=== PATIENT | female | born 1970 | race African-American/Black ===

== ENCOUNTER 2020-11-15 23:08 | Emergency (ER) | payer SELFPAY ==
[~2020-11-15] VITALS: Ht 170.2 cm; Wt 132.6 kg
[2020-11-15 23:08] VITALS: BP 137/80
[~2020-11-15 23:08] MED LIST: ALBU2.5V8 IH; AZIT250T PO; AZIT500T PO; BENZ100C PO; CEFP200T PO; GUAI600T47 PO; HYDR-3165 PO; HYDR115S2 PO; IPRA3AMP29 IH; PRED50TA PO; ZOLP10TA PO
--- NOTE | 2020-11-15 23:26 | PHYS DOC ---
Past History Past Medical History: Asthma, Other Past Surgical History: No Surgical History, Other Smoking: Cigarettes Alcohol Use: Occasionally Drug Use: None General Adult HPI: HPI: ".. I got a wicked sore throat..."... my tonsils are swollen.... My ears hurt.... For the last 2 days... fever.. congestion.. just lamonte hurt..all over my head.. " Patient is a 50 year old FEMALE who presents with above hx and complaints sore throat, congestion, ear pain x 2 days. Patient states pain feels like previous strep infections. Patient did not get flu vaccination this year. Symptoms been present last 2 days. Tonight her ears started hurting. Bilateral ears have fluid and injection. Patient denies any history mental suppression. Has not follow-up with primary care recently. No immunosuppression. No recent travel. No severe ill contacts. Patient does have a history of hypertension and morbid obesity. Review of Systems: Review of Systems: Constitutional: Subjective complaints of fever and chills Eyes: Denies change in visual acuity HENT: History of nasal congestion and sore throat. Complains of bilateral ear pain Respiratory: History of cough and wheezing Cardiovascular: Denies chest pain or edema GI: Denies abdominal pain, nausea, vomiting, bloody stools or diarrhea : Denies dysuria Musculoskeletal: Denies back pain or joint pain Integument: Denies rash Neurologic: Denies headache, focal weakness or sensory changes Endocrine: Denies polyuria or polydipsia Lymphatic: Denies swollen glands Psychiatric: Denies depression or anxiety Family History: Family History: Noncontributory Current Medications: Current Meds: See nursing for home meds Allergies: Allergies: Allergies Coded Allergies Type Severity Reaction Last Updated Verified No Known Drug Allergies 09/22/14 No Physical Exam: PE: Constitutional: Moderate acute distress, non-toxic appearance. [] HENT: Normocephalic, atraumatic, bilateral external ears normal, bilateral TMs are injected with fluid, oropharynx moist, injected pharynx, very large tonsillar pillars and adenoids, no oral exudates, nose swollen turbinates with clear rhinorrhea Eyes: PERRLA, EOMI, conjunctiva normal, no discharge. [] Neck: Normal range of motion, no tenderness, supple, no stridor. [] Neck size more than 17 inches circumference. Anterior cervical chain adenopathy Cardiovascular:Tachycaridia Heart rate regular rhythm, no murmur []PMI to Lt. Lungs & Thorax: Bilateral breath sounds equal at apexes on auscultation []Basilar crackles. Abdomen: Bowel sounds normal, soft, no tenderness, no masses, no pulsatile masses. Morbid obesity Skin: Warm, dry, no erythema, no rash. [] Back: No tenderness, no CVA tenderness. [] Extremities: No tenderness, no cyanosis, no clubbing, ROM intact, bilateral ankle edema. [] Neurologic: Alert and oriented X 3, normal motor function, normal sensory function, no focal deficits noted. [] Psychologic: Affect anxious, judgement normal, mood normal. [] EKG: EKG: [] Radiology/Procedures: Radiology/Procedures: [] Heart Score: Risk Factors: Risk Factors: DM, Current or recent (<one month) smoker, HTN, HLP, family history of CAD, obesity. Risk Scores: Score 0 - 3: 2.5% MACE over next 6 weeks - Discharge Home Score 4 - 6: 20.3% MACE over next 6 weeks - Admit for Clinical Observation Score 7 - 10: 72.7% MACE over next 6 weeks - Early Invasive Strategies Course & Med Decision Making: Course & Med Decision Making Pertinent Labs and Imaging studies reviewed. (See chart for details) Patient gargle Listerine 4 times a day. Patient take Tylenol and ibuprofen as needed for pain. Patient take Keflex 500 mg 3 times a day. Patient return if any concerns. Follow-up primary care. Impression: 1. Viral pharyngitis 2. Bilateral otitis 3. Morbid obesity. [] Dragon Disclaimer: Dragon Disclaimer: This electronic medical record was generated, in whole or in part, using a voice recognition dictation system. Departure Departure: Referrals: PCP,NO (PCP) Scripts Fluconazole (DIFLUCAN) 100 Mg Tablet 100 MG PO DAILY for post antibiotic for 3 Days, #3 TAB Prov: DARIUSZ BAER MD 11/16/20 Cephalexin (KEFLEX) 750 Mg Capsule 1 CAP PO TID for pharyngitis for 10 Days, #30 CAP 0 Refills Prov: DARIUSZ BAER MD 11/16/20 Henry Disclaimer This chart was dictated in whole or in part using Voice Recognition software in a busy, high-work load, and often noisy Emergency Department environment. It may contain unintended and wholly unrecognized errors or omissions. Dragon Disclaimer This chart was dictated in whole or in part using Voice Recognition software in a busy, high-work load, and often noisy Emergency Department environment. It may contain unintended and wholly unrecognized errors or omissions. DARIUSZ BAER MD Nov 15, 2020 23:26
[2020-11-16] MEDS ORDERED: FLUC100T7 PO
[2020-11-16] MEDS ORDERED: oxyCODONE/APAP 5/325 1 TAB TABLET PO ONE
[2020-11-16] MEDS ORDERED: CEPH750C9 PO
[2020-11-16] MEDS ORDERED: predniSONE 10 MG TABLET PO ONE
[2020-11-16] MEDS ORDERED: KETOROLAC 60 MG/2 ML VIAL. IM ONE (00:30)
[2020-11-16] MEDS ORDERED: cefTRIAXone IM 1 GM VIAL IM ONE (00:30)
[2020-11-16 00:52] LABS: INFLUENZA A PATIENT NEGATIVE (NEGATIVE); INFLUENZA B PATIENT NEGATIVE (NEGATIVE)
== END 2020-11-16 01:45 | disposition home or self-care (01) ==
LOC: ER 23:08
DX: J02.8 Acute pharyngitis due to other specified organisms (principal); H66.93 Otitis media, unspecified, bilateral; E66.01 Morbid (severe) obesity due to excess calories; J45.909 Unspecified asthma, uncomplicated; F17.210 Nicotine dependence, cigarettes, uncomplicated; Z68.42 Body mass index [BMI] 45.0-49.9, adult
CPT/HCPCS: 87070; 87804; 87880; 96372; 99284; J0696; J1885; J7512

== ENCOUNTER 2021-07-19 10:11 | Emergency (ER) | payer SELFPAY ==
[~2021-07-19] VITALS: Ht 170.2 cm; Wt 135.0 kg
[~2021-07-19 10:11] MED LIST changes: +CEPH750C9 PO; +FLUC100T7 PO
[2021-07-19] MEDS ORDERED: IPRATRPIUM/ALBUTEROL 0.5/2.5MG 3 ML NEBU. ONE (11:12)
--- NOTE | 2021-07-19 11:27 | PHYS DOC ---
Past History Past Medical History: Asthma Past Surgical History: No Surgical History, Tubal ligation Smoking: Cigarettes Alcohol Use: None Drug Use: None General Adult EDM: Chief Complaint: SHORTNESS OF BREATH HPI: HPI: Patient is a 51-year-old female who presents to the ER for an asthma exacerbation. Patient is reporting shortness of breath with a clear productive cough that started today. Patient has a rescue inhaler that she uses but does not have Symbicort or DuoNeb's at home. Patient denies fevers or sick exposures. Review of Systems: Review of Systems: 14 body systems of the review of systems have been reviewed. See HPI for pertinent positive and negative responses, otherwise all other systems are negative, nonpertinent or noncontributory Current Medications: Current Meds: Current Medications Medications (Trade) Dose Ordered Sig/Tobi Start Time Stop Time Status Last Admin Dose Admin Albuterol/ Ipratropium (Duoneb) 3 ml STK-MED ONCE 07/19/21 11:12 07/19/21 11:13 DC Prednisone (Prednisone) 60 mg 1X ONCE 07/19/21 11:30 07/19/21 11:31 UNV Allergies: Allergies: Allergies Coded Allergies Type Severity Reaction Last Updated Verified No Known Drug Allergies 09/22/14 No Physical Exam: PE: Constitutional: Well developed, well nourished, no acute distress, non-toxic appearance. [] HENT: Normocephalic, atraumatic, bilateral external ears normal, oropharynx moist, no oral exudates, nose normal. [] Eyes: PERRL, EOMI, conjunctiva normal, no discharge. [] Neck: Normal range of motion, no stridor Cardiovascular:Heart rate regular rhythm, no murmur [] Lungs & Thorax: Inspiratory and expiratory wheezing noted throughout Abdomen: Bowel sounds normal, soft, no tenderness, no masses, no pulsatile masses. [] Skin: Warm, dry, no erythema, no rash. [] Back: Normal range of motion Extremities: No tenderness, no cyanosis, no clubbing, ROM intact, no edema. [] Neurologic: Alert and oriented X 3, normal motor function, normal sensory function, no focal deficits noted. [] Psychologic: Affect normal, judgement normal, mood normal. [] Current Patient Data: Labs: Current Medications Medications (Trade) Dose Ordered Sig/Tobi Route PRN Reason Start Time Stop Time Status Last Admin Dose Admin Albuterol/ Ipratropium (Duoneb) 3 ml STK-MED ONCE .ROUTE 07/19/21 11:12 07/19/21 11:13 DC Prednisone (Prednisone) 60 mg 1X ONCE PO 07/19/21 12:00 07/19/21 11:39 DC Methylprednisolone Sodium Succinate (SOLU-Medrol 125MG VIAL) 125 mg 1X ONCE IV 07/19/21 12:15 07/19/21 12:16 DC 07/19/21 12:15 Albuterol Sulfate (Ventolin) 2.5 mg STK-MED ONCE .ROUTE 07/19/21 12:51 07/19/21 12:51 DC Albuterol Sulfate (Ventolin) 10 mg 1X ONCE NEB 07/19/21 13:15 07/19/21 13:16 DC 07/19/21 13:11 Albuterol/ Ipratropium (Duoneb) 3 ml 1X ONCE NEB 07/19/21 13:15 07/19/21 13:16 DC 07/19/21 13:11 EKG: EKG: [] Radiology/Procedures: Radiology/Procedures: PROCEDURE: PORTABLE CHEST 1V Single view of the chest. 07/19/2021 11:25 AM Indication: Reason: SHORTNESS OF BREATH, WHEEZING, HX ASTHMA / Comparison: Chest radiograph November 16, 2014 Findings: No gross hyperinflation is identified. No pneumothorax or pleural effusion is seen. No focal infiltrates are identified. Mild interstitial coarsening is seen, nonspecific but similar to comparison study. Heart size is normal. Bony thorax is grossly intact. IMPRESSION: Mild interstitial coarsening, similar to comparison exams, likely chronic. No acute cardiopulmonary process is identified.. Electronically signed by: Yaw Bauman MD (07/19/2021 11:51 AM) [id number] DICTATED AND SIGNED BY: YAW BAUMAN MD DATE: 07/19/21 1150 CC: ED DAVIS APRN; PCP,NO ~MTH0 0 [] Heart Score: C/O Chest Pain: No Risk Factors: Risk Factors: DM, Current or recent (<one month) smoker, HTN, HLP, family history of CAD, obesity. Risk Scores: Score 0 - 3: 2.5% MACE over next 6 weeks - Discharge Home Score 4 - 6: 20.3% MACE over next 6 weeks - Admit for Clinical Observation Score 7 - 10: 72.7% MACE over next 6 weeks - Early Invasive Strategies Course & Med Decision Making: Course & Med Decision Making Pertinent Labs and Imaging studies reviewed. (See chart for details) [] Patient is a 51-year-old female who presents to the ER with shortness of breath and a clear productive cough. She has a history of asthma. Chest x-ray performed in the ER and it showed chronic interstitial coarsening, similar to previous exam with no acute findings.. Patient tested for COVID-19 and she will be notified of those results when they become available in approximately 2 days. Patient advised to self isolate until she receives those results. Patient treated with [id number] breathing treatments, continuous nebulizer, steroid. Upon reassessment, patient's oxygen saturation is 100%. She is nonlabored. She states that she feels much better and would like to be discharged home with a work note and a steroid. I discussed possible admission for asthma exacerbation with patient and she declined stating as long as she has a steroid to go home when she will be fine. Patient will be discharged home with steroid. Patient advised to follow-up with primary care provider tomorrow regarding her ER visit. I discussed with patient all findings and diagnostic testing as well as the need to follow-up with PCP for further evaluation and treatment or return to the ER if any new or worsening symptoms. Strict return precautions were also discussed at length. Patient voiced understanding and agreement with the plan. Patient is hemodynamically stable at the time of disposition. Henry Disclaimer: Henry Disclaimer: This electronic medical record was generated, in whole or in part, using a voice recognition dictation system. Departure Departure: Impression: Primary Impression: Asthma exacerbation Qualified Codes: J45.901 - Unspecified asthma with (acute) exacerbation Disposition: HOME / SELF CARE / HOMELESS Condition: GOOD Referrals: PCP,NO (PCP) Patient Instructions: Asthma Attacks, Prevention, Asthma Prevention-Brief Additional Instructions: You were seen in the ER today for an asthma exacerbation. You were noted to have wheezing. You were tested for COVID-19. You will be notified of results when they become available in approximately 2 days. Please self isolate until you receive these results. In the ER you had a chest x-ray that showed no acute findings. You were treated with breathing treatments and a steroid. You will be discharged home with a steroid. Please take this as directed. Continue using your inhaler as directed. Please follow-up with your primary care provider tomorrow regarding your ER visit. If you develop worsening of your shortness of breath, chest pain, high fevers refractory to treatment, l ightheadedness or any new or worsening concerns please return to the ER. EMERGENCY DEPARTMENT GENERAL DISCHARGE INSTRUCTIONS Thank you for coming to [facility] (ED) today and trusting us with you care. We trust that you had a positivie experience in our Emergency Department. If you wish to speak to the department management, you may call the director at . YOUR FOLLOW UP INSTRUCTIONS ARE FOLLOWS: 1. Do you have a private Doctor? If you do not have a private doctor, please ask for a resource list of physicians or clinics that may be able to assist you with follow up care. 2. The Emergency Physician has interpreted your x-rays. The X-Ray specialist will also review them. If there is a change in the findings, you will be notified in 48 hours when at all possible. 3. A lab test or culture has been done, your results will be reviewed and you will be notified if you need a change in treatment. ADDITIONAL INSTRUCTIONS AND INFORMATION: 1. Your care today has been supervised by a physician who is specially trained in emergency care. Many problems require more than one evaluation for a complete diagnosis and treatment. We recommend that you schedule your follow up appointment as recommended to ensure complete treatment of you illness or injury. If you are unable to obtain follow up care and continue to have a problem, or if your condition worsens, we recommend that you return to the ED. 2. We are not able to safely determine your condition over the phone nor are we able to give sound medical advice over the phone. For these safety reasons, if you call for medical advice we will ask you to come to the ED for further evaluation. 3. If you have any questions regarding these discharge instructions please call the ED at [phone]. SAFETY INFORMATION: In the interest of safety, wellness, and injury prevention; we encourage you to wear your sealbelt, if you smoke; quite smoking, and we encourage family to use a protective helmet for bicycling and other sporting events that present an increased risk for head injury. IF YOUR SYMPTOMS WORSEN OR NEW SYMPTOMS DEVELOP, OR YOU HAVE CONCERNS ABOUT YOUR CONDITION; OR IF YOUR CONDITION WORSENS WHILE YOU ARE WAITING FOR YOUR FOLLOW UP APPOINTMENT; EITHER CONTACT YOUR PRIMARY CARE DOCTOR, THE PHYSICIAN WHOSE NAME AND NUMBER YOU WERE GIVEN, OR RETURN TO THE ED IMMEDIATELY. Scripts Albuterol Sulfate (PROAIR HFA INHALER) 8.5 Gm Hfa.aer.ad 2 PUFF IH PRN Q4-6HRS PRN for wheezing for 21 Days, #1 INHALER 0 Refills as needed for wheezing Prov: ED DAVIS APRN 07/19/21 Prednisone (PREDNISONE) 20 Mg Tablet 3 TAB PO DAILY for asthma for 5 Days, #15 TAB 0 Refills Prov: ED DAVIS APRN 07/19/21 ED DAVIS APRN Jul 19, 2021 11:26
--- NOTE | 2021-07-19 11:54 | RAD ---
Single view of the chest. 07/19/2021 11:25 AM Indication: Reason: SHORTNESS OF BREATH, WHEEZING, HX ASTHMA / Comparison: Chest radiograph November 16, 2014 Findings: No gross hyperinflation is identified. No pneumothorax or pleural effusion is seen. No foca l infiltrates are identified. Mild interstitial coarsening is seen, nonspecific but similar to compar jose ramon study. Heart size is normal. Bony thorax is grossly intact. IMPRESSION: Mild interstitial coarsening, similar to comparison exams, likely chronic. No acute cardi opulmonary process is identified.. Electronically signed by: Yaw Mills MD (07/19/2021 11:51 AM) [id number]
[2021-07-19] MEDS ORDERED: predniSONE 20 MG TABLET PO ONE (12:00)
[2021-07-19] MEDS ORDERED: methylPREDNISolone SOD SUCC PF 125 MG/2 ML VIAL. IV ONE (12:15)
[2021-07-19 12:41] VITALS: BP 135/79
[2021-07-19] MEDS ORDERED: ALBUTEROL SULFATE 2.5 MG/3 ML NEBU. ONE (12:51)
[2021-07-19] MEDS ORDERED: IPRATRPIUM/ALBUTEROL 0.5/2.5MG 3 ML NEBU. NEB ONE (13:15)
[2021-07-19] MEDS ORDERED: ALBUTEROL SULFATE 2.5 MG/3 ML NEBU. NEB ONE (13:15)
[2021-07-19] MEDS ORDERED: PRED20TA PO (14:05)
[2021-07-19] MEDS ORDERED: ALBU2.5V8 IH (14:11)
== END 2021-07-19 14:31 | disposition home or self-care (01) ==
LOC: ER 10:11
DX: J45.901 Unspecified asthma with (acute) exacerbation (principal); F17.210 Nicotine dependence, cigarettes, uncomplicated; Z20.822 Contact with and (suspected) exposure to COVID-19
CPT/HCPCS: 71045; 94644; 96374; 99285; C9803; J2930; J7613; U0003; 94640